=== PATIENT | female | born 1955 | race Caucasian/White ===

== ENCOUNTER 2018-03-25 22:53 | Emergency (ER) | payer OTHER ==
[~2018-03-25] VITALS: Ht 165.1 cm; Wt 145.1 kg
--- NOTE | 2018-03-25 22:53 | NUR ---
BB DAUGHTER FROM HOME C/C RT FLANK PAIN RADIATING DOWN TO PELVIC AREA. BURNING SENSATION UPON URINATION AND UNABLE TO CONTROL URINE. VSS NAD A/OX4 ABLE TO MAKE NEEDS KNOWN. WILL CONTINUE TO MONITOR FOR ANY CHANGES DURING THE SHIFT.
--- NOTE | 2018-03-25 22:54 | NUR ---
ER MD LESLIE AT BEDSIDE
[2018-03-25] MEDS ORDERED: ONDANSETRON HCL/PF 4 MG/2 ML VIAL IVP ONE (23:30)
[2018-03-25] MEDS ORDERED: IV NS 0.9% 500 ML BAG IV ONE (23:30)
--- NOTE | 2018-03-25 23:36 | NUR ---
BLOOD SENT TO LAB WITH ABORIGINAL EDUCATION WORKER COORDINATOR
[2018-03-25 23:42] LABS: BASOPHILS # (AUTO) 0.3 /CMM (0.0-0.2); BASOPHILS % (AUTO) 1.4 % (0.0-2.0); EOSINOPHILS % (AUTO) 0.5 % (0.0-6.0); HEMATOCRIT 39 % (33-45); HEMOGLOBIN 12.5 g/dL (11.5-14.8); LYMPHOCYTES # (AUTO) 3.6 /CMM (0.8-4.8); LYMPHOCYTES % (AUTO) 18.3 % (20.0-44.0); MEAN CORPUSCULAR HGB CONC 33 g/dl (31.0-36.0); MEAN CORPUSCULAR VOLUME 79 fL (82-100); MONOCYTES # (AUTO) 1.3 /CMM (0.1-1.30); MONOCYTES % (AUTO) 6.7 % (2.0-12.0); NEUTROPHILS # (AUTO) 14.2 /CMM (1.8-8.9); NEUTROPHILS % (AUTO) 73.1 % (43.0-81.0); PLATELET COUNT (AUTO) 282 /CMM (150-450); RDW COEFFICIENT OF VARIATION 16.7 (11.5-15.0); RED BLOOD CELL COUNT(AUTO) 4.87 MIL/uL (4.0-5.2); WHITE BLOOD COUNT (AUTO) 19.5 K/uL (4.3-11.0)
--- NOTE | 2018-03-25 23:45 | NUR ---
PT OFF TO CT
[2018-03-25] MEDS ORDERED: ONDANSETRON HCL/PF 4 MG/2 ML VIAL ONE (23:49)
[2018-03-25 23:54] LABS: CREATININE 1.5 mg/dL (0.6-1.3); POTASSIUM 4.6 mmol/L (3.5-5.1)
--- NOTE | 2018-03-25 23:54 | NUR ---
PT BACK FROM RADIOLOGY
[2018-03-25 23:55] LABS: INR 1.07 (0.87-1.13)
[2018-03-26] LABS: ALBUMIN 2.8 g/dL (3.4-5.0); BILIRUBIN,TOTAL 0.3 mg/dL (0.2-1.0); TOTAL PROTEIN, SERUM 7.8 g/dL (6.4-8.2)
--- NOTE | 2018-03-26 00:26 | NUR ---
CONTRACT RUNNER AT BEDSIDE
[2018-03-26] MEDS ORDERED: MORPHINE SULFATE INJ 2 MG/ML DISP.SYRIN IV ONE (00:30)
[2018-03-26] MEDS ORDERED: MORPHINE SULFATE INJ 4 MG/ML DISP.SYRIN ONE (00:37)
[2018-03-26 01:02] LABS: APPEARANCE,URINE CLOUDY (CLEAR); BILIRUBIN,URINE NEGATIVE (NEGATIVE); BLOOD, URINE 3+ Ery/uL (NEGATIVE); COLOR,URINE YELLOW (YELLOW); KETONES,URINE NEGATIVE (NEGATIVE); LEUKOCYTE ESTERASE ,URINE 3+ (NEGATIVE); NITRITE, URINE POSITIVE (NEGATIVE); PROTEIN,URINE 1+ mg/dl (NEGATIVE); UGLUCOSE NEGATIVE (NEGATIVE); UROBILINOGEN,URINE 0.2 EU/dL (0.2)
[2018-03-26] MEDS ORDERED: CIPROFLOXACIN IV RTU 400 MG in PREMIX 1 EA IV SCH (01:30)
[2018-03-26] MEDS ORDERED: CIPROFLOXACIN IV RTU 200 ML IV ONE (01:42)
[2018-03-26 03:08] VITALS: BP 134/71
[2018-03-26 03:10] LABS: WBC,URINE TOO NUMEROUS TO COUN /HPF (0-3)
[2018-03-26 03:11] LABS: BACTERIA,URINE Few /HPF (None Seen); SQUAMOUS EPITHELIAL CELL,UR Few /HPF (None Seen)
== END 2018-03-26 03:09 | disposition home or self-care (01) ==
LOC: ER 22:58
DX: N39.0 Urinary tract infection, site not specified (principal); R19.09 Other intra-abdominal and pelvic swelling, mass and lump; I10 Essential (primary) hypertension; E11.9 Type 2 diabetes mellitus without complications; M48.00 Spinal stenosis, site unspecified; Z85.528 Personal history of other malignant neoplasm of kidney; Z90.5 Acquired absence of kidney; Z90.710 Acquired absence of both cervix and uterus
CPT/HCPCS: 36415; 74176; 80048; 80076; 81001; 83605; 83690; 83880; 85025; 85730; 87040 ×2; 87086; 93970; 96365; 96375; 99285; A4216; A4606; J0744 ×2; J2270; J2405; J7030; Z7610; 81000-TC; 87186-TC

== ENCOUNTER 2019-10-30 23:20 | Emergency (ER) | payer BC, OTHER ==
[~2019-10-30] VITALS: Ht 165.1 cm; Wt 156.5 kg
--- NOTE | 2019-10-30 23:54 | NUR ---
BIBRA FOR C/O L ANKLE PAIN, SWELLING AND BRUISE S/P FALL 2 DAYS AGO.
[2019-10-30] MEDS ORDERED: HYDROCODONE/APAP 5/325MG 1 EACH TABLET ONE (23:57)
--- NOTE | 2019-10-31 00:13 | NUR ---
PT REPORTED FEELING WEAK AND SWEATY. FSBS DONE AT THE BED SIDE PER MD'S ORDER: 52. DR LESLIE MADE AWARE OF THE RESULT. PT WAS PROVIDED W/ JUICE AND A SANDWICH. TOLERATE WELL. WILL CONT TO MONITOR ,
[2019-10-31] MEDS ORDERED: HYDROCODONE/APAP 5/325MG 1 EACH TABLET PO ONE ×2 (01:00)
--- NOTE | 2019-10-31 01:40 | NUR ---
PT WAS PROVIDED W/ L FOOT STIRRUP SPLINT AND A WALKER. PT TEACING PROVIDED W. GOOD DEMONSTRATIONS. Patient discharged to home in stable condition. Rx and Written and verbal after care instructions given. Patient and family verbalized understanding of instruction. pt was assisted to the car via a W/C
[2019-10-31 01:43] VITALS: BP 153/85
== END 2019-10-31 01:43 | disposition home or self-care (01) ==
LOC: ER 23:22
DX: S82.435A Nondisplaced oblique fracture of shaft of left fibula, initial encounter for closed fracture (principal); E11.649 Type 2 diabetes mellitus with hypoglycemia without coma; I10 Essential (primary) hypertension; M48.00 Spinal stenosis, site unspecified; Z90.710 Acquired absence of both cervix and uterus; Z98.890 Other specified postprocedural states; X50.1XXA Overexertion from prolonged static or awkward postures, initial encounter; Y93.89 Activity, other specified; Y92.89 Other specified places as the place of occurrence of the external cause; Y99.8 Other external cause status
CPT/HCPCS: 73610-TC; 82962-TC